=== PATIENT | female | born 1950 | race Caucasian/White ===

== ENCOUNTER 2017-06-05 19:59 | Emergency (ER) | payer MEDICARE, BC ==
[2017-06-05 20:29] VITALS: BP 141/81
[2017-06-05] MEDS ORDERED: HYDROmorphone 1 MG/ML Syringe IM ONE (20:37)
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
--- NOTE | 2017-06-07 09:06 | US ---
Abdomen Ltd HISTORY: Fall, pain. COMPARISON: None FINDINGS: In the subcutaneous tissues in the region of trauma and pain there is a small hematoma marisabel uring 6.7 x 1.8 x 5.3 cm. The left kidney and spleen appear normal.
== END 2017-06-05 21:53 | disposition home or self-care (01) ==
LOC: JP.ED 19:59
DX: S30.1XXA Contusion of abdominal wall, initial encounter (principal); S30.810A Abrasion of lower back and pelvis, initial encounter; Z88.8 Allergy status to other drugs, medicaments and biological substances; Z79.82 Long term (current) use of aspirin; Z79.899 Other long term (current) drug therapy; V94.0XXA Hitting object or bottom of body of water due to fall from watercraft, initial encounter
CPT/HCPCS: 76705; 96372; 99284; J1170